=== PATIENT | female | born 1950 | race Caucasian/White ===

== ENCOUNTER → 2020-04-16 | Outpatient (CLI) | payer MEDICARE, OTHER ==
[~2020-04-16] MED LIST: BD ULTRA-FINE1 EACH MC; CALCIUM 600 MG1 EAC4 PO; LANTUS SOL300 UNIT/3 SQ; LOVENOX60 MG/0.6 SC; NOVOLIN 70100 UNITS/ SQ; NOVOLOG MI100 UNITS/ SQ; SIMVASTATIN20 MG PO; WARFARIN SODIUM1 MG PO; Z.0.AMARYL4 MG PO; Z.0.ATENOLOL50 MG PO; Z.0.DIGOXIN250 MCG PO; Z.0.LISINOPRIL5 MG PO; Z.0.MULTIVITAMINS1 E PO; Z.0.PROTONIX40 MG PO; Z.0.TRICOR145 MG PO; Z.0.WARFARIN SODIUM2 PO; ZENPEP DR 15,01 EACH PO; [UNRECOGNIZED DRUG - OTHER] PO
[2020-04-16 11:02] LABS: INR 1.84; PROTHROMBIN TIME 22.7 seconds (11.9-14.5)
== END ==
LOC: LAB 09:56
PROVIDERS: ATTEND Internal Medicine
DX: I48.20 Chronic atrial fibrillation, unspecified (principal); Z79.01 Long term (current) use of anticoagulants
CPT/HCPCS: 36415; 85610